=== PATIENT | female | born 1975 | race African-American/Black ===

== ENCOUNTER 2018-10-09 06:25 | Emergency (ER) | payer OTHER ==
[~2018-10-09] VITALS: Ht 175.3 cm; Wt 113.4 kg
[2018-10-09] MEDS ORDERED: dilTIAZem HCL 30 MG TABLET PO ONE (07:00)
[2018-10-09] MEDS ORDERED: LISINOPRIL 10 MG TABLET PO ONE ×2 (07:00)
[2018-10-09] MEDS ORDERED: diazePAM 5 MG TABLET PO ONE (07:00)
[2018-10-09] MEDS ORDERED: MORPHINE SULFATE 10 MG/ML VIAL. IM ONE (07:00)
[2018-10-09] MEDS ORDERED: HYDR-971 PO (07:04)
[2018-10-09] MEDS ORDERED: LISI10TA2 PO (07:04)
[2018-10-09] MEDS ORDERED: IBUP-1060 PO (07:04)
[2018-10-09] MEDS ORDERED: DIAZ5TAB PO (07:04)
[2018-10-09] MEDS ORDERED: DILT120C80 PO (07:04)
--- NOTE | 2018-10-09 07:36 | PHYS DOC ---
Past Medical History Past Medical History: Hypertension Past Surgical History: Alcohol Use: None Drug Use: Marijuana Adult General Chief Complaint Chief Complaint: BACK PAIN OR INJURY HPI HPI Patient is a 43 year old female who presents with low back pain and sciatica. Patient states has a chronic hx of LBP and infrequent sciatica symptoms. Today she reports worsening pain in the last 48 hours. This morning she awoke and her back was too stiff and she was having difficulty with ambulation. She did not have any recent trauma. No new exacerbating events that she is aware of. She complains of pain in the lumbar spine area that does have some radiation down the posterior aspect of the right leg. She does not have numbness, tingling, weakness. No difficulties with elimination. Symptoms do seem typical for her prior episodes of low back pain and sciatica according to the patient. No fever or chills. No flank pain. Review of Systems Review of Systems Constitutional: Denies fever or chills Eyes: Denies change in visual acuity HENT: Denies nasal congestion Respiratory: Denies cough or shortness of breath : Denies dysuria or hematuria Musculoskeletal: as above Integument: Denies rash Neurologic: Denies headache All other systems were reviewed and found to be within normal limits, except as documented in this note. Current Medications Current Medications Current Medications Medications (Trade) Dose Ordered Sig/Thang Start Time Stop Time Status Last Admin Dose Admin Diazepam (Valium) 5 mg 1X ONCE 10/09/18 07:00 10/09/18 07:01 DC 10/09/18 07:08 5 MG Diltiazem HCl (Cardizem) 30 mg 1X ONCE 10/09/18 07:00 10/09/18 07:01 DC 10/09/18 07:08 30 MG Lisinopril (Prinivil) 20 mg 1X ONCE 10/09/18 07:00 10/09/18 07:05 DC 10/09/18 07:08 20 MG Morphine Sulfate (Morphine Sulfate) 10 mg 1X ONCE 10/09/18 07:00 10/09/18 07:01 DC 10/09/18 07:06 10 MG Allergies Allergies Allergies Coded Allergies Type Severity Reaction Last Updated Verified No Known Drug Allergies 10/09/18 No Physical Exam Physical Exam Constitutional: Well developed, well nourished, no acute distress, non-toxic appearance, some antalgic movements HENT: Normocephalic, atraumatic, bilateral external ears normal, oropharynx moist Neck: Normal range of motion Cardiovascular:Heart rate regular rhythm, no murmur Lungs & Thorax: Bilateral breath sounds clear to auscultation Skin: Warm, dry, no erythema, no rash Back: TTP over lumbar paraspinal muscles Neurologic: Alert and oriented X 3, 5/5 motor strength bilateral LE's. Sensation to light touch intact over all dermatomes. 2/4 DTR's at achilles and patellar levels Psychologic: Affect normal Current Patient Data Vital Signs Vital Signs Date Time Temp Pulse Resp B/P (MAP) Pulse Ox O2 Delivery O2 Flow Rate FiO2 10/09/18 08:32 77 16 176/95 (122) 100 Room Air 10/09/18 06:35 98.5 98.5 Lab Values Laboratory Tests Test 10/09/18 07:24 Urine Collection Type Unknown Urine Color Red Urine Clarity Cloudy Urine pH 5.5 Urine Specific [place] >=1.030 Urine Protein 100 mg/dL (NEG-TRACE) Urine Glucose (UA) Negative mg/dL (NEG) Urine Ketones (Stick) Trace mg/dL (NEG) Urine Blood Large (NEG) Urine Nitrite Negative (NEG) Urine Bilirubin Moderate (NEG) Urine Urobilinogen Dipstick 1.0 mg/dL (0.2 mg/dL) Urine Leukocyte Esterase Small (NEG) Urine RBC >40 /HPF (0-2) Urine WBC 1-4 /HPF (0-4) Urine Squamous Epithelial Cells Mod /LPF Urine Bacteria Few /HPF (0-FEW) Urine Mucus Slight /LPF EKG EKG [] Radiology/Procedures Radiology/Procedures [] Course & Med Decision Making Course & Med Decision Making Pertinent Labs and Imaging studies reviewed. (See chart for details) Patient is evaluated in the emergency department for acute on chronic low back pain with sciatica. She was given medications for pain in the emergency department and did feel improved. Prescribed Valium, ibuprofen, [place] for pain at home. The patient was also noted to be hypertensive in the emergency department. She recently moved to this area from [place] and has not been able to establish care or get refills of her pressure medications. She normally takes extended release diltiazem 240 mg every day and lisinopril 10 mg daily. I did provide refills of these medications for the patient. She was discharged home. Encouraged to establish care. Return to the ER for any new or worsening symptoms. Some mild hematuria was noted. Patient states she feels she is starting her menses. Annabelleon Disclaimer Varun Disclaimer This electronic medical record was generated, in whole or in part, using a voice recognition dictation system. Departure Departure Impression: Primary Impression: Sciatica Additional Impression: Lumbar back pain Disposition: HOME, SELF-CARE Condition: GOOD Referrals: NON,STAFF (PCP) Patient Instructions: Sciatica, Back Pain, Adult, Back Exercises, [id number] , Pain Medicine Instructions, [id number] Scripts Lisinopril (LISINOPRIL) 10 Mg Tablet 1 TAB PO DAILY, #30 TAB 1 Refill Prov: ANNABELLE REGALADO DO 10/09/18 Diltiazem Hcl (DILTIAZEM 24HR CD) 120 Mg Cap.er.24h 240 MG PO DAILY, #60 CAP.SR 1 Refill Prov: ANNABELLE REGALADO DO 10/09/18 Diazepam (VALIUM) 5 Mg Tablet 5 MG PO TID for muscle spasm, #15 TAB Prov: ANNABELLE REGALADO DO 10/09/18 Hydrocodone/Apap 5-325 (NORCO 5-325 TABLET) 1 Each Tablet 1-2 EACH PO PRN Q6HRS PRN for SEVERE PAIN, #18 as needed for pain Prov: ANNABELLE REGALADO DO 10/09/18 Ibuprofen (IBUPROFEN) 800 Mg Tablet 800 MG PO PRN TID PRN for PAIN, #30 TAB take with food or milk to avoid upsetting stomach Prov: ANNABELLE REGALADO DO 10/09/18 Problem Qualifiers ANNABELLE REGALADO DO Oct 09, 2018 07:36
[2018-10-09 07:52] LABS: BILIRUBIN,URINE MODERATE (NEG); CLARITY,URINE CLOUDY; COLOR,URINE RED; NITRITE,URINE NEGATIVE (NEG); PH,URINE 5.5; PROTEIN,URINE 100 mg/dL (NEG-TRACE)
[2018-10-09 08:23] LABS: SQUAMOUS EPITHELIAL CELL,UR MOD /LPF
[2018-10-09 08:24] LABS: BACTERIA,URINE FEW /HPF (0-FEW); RBC,URINE >40 /HPF (0-2)
[2018-10-09 08:32] VITALS: BP 176/95
== END 2018-10-09 08:32 | disposition home or self-care (01) ==
LOC: ER 06:25
DX: M54.42 Lumbago with sciatica, left side (principal); G89.29 Other chronic pain; I10 Essential (primary) hypertension; Z98.890 Other specified postprocedural states
CPT/HCPCS: 81001; 96372; 99284; J2270

== ENCOUNTER 2019-01-21 11:12 | Emergency (ER) | payer OTHER ==
[~2019-01-21] VITALS: Ht 175.3 cm; Wt 119.3 kg
[~2019-01-21 11:12] MED LIST: DIAZ5TAB PO; DILT120C85 PO; HYDR-3164 PO; IBUP-1060 PO; LISI10TA2 PO
[2019-01-21 11:23] VITALS: BP 189/101
--- NOTE | 2019-01-21 11:38 | PHYS DOC ---
Past Medical History Past Medical History: Hypertension Past Surgical History: Alcohol Use: None Drug Use: Marijuana Adult General Chief Complaint Chief Complaint: BACK PAIN OR INJURY HPI HPI 43-year-old female presents to ER with complaints of lower back pain which is been gradually worsening over the past 1-2 days. Patient denies any recent falls or injury. Patient denies urinary or vaginal symptoms. Patient reports pain increases with repositioning and walking. She reports she took Tylenol yesterday denies any [id number] medications today. Patient denies swelling , numbness or tingling, or skin discoloration in bilateral lower extremities. Patient denies incontinence of bowel or bladder, change in bowel pattern, or saddle anesthesia. Patient reports history of sciatica but states typically her pain will radiate down bilateral lower extremities. Patient states she has had no pain in buttock or lower extremities. Review of Systems Review of Systems Constitutional: Denies fever or chills [] Respiratory: Denies cough or shortness of breath [] Cardiovascular: No additional information not addressed in HPI [] GI: Denies abdominal pain, nausea, vomiting, bloody stools or diarrhea [] : Denies urinary/vaginal sxs. Denies incontinence. Reports on BC so doesn't have menses Musculoskeletal: Denies joint pain. Reports lower back pain from side to side- denies pain radiates into buttock/lower extremities. Denies numbness/tingling Integument: Denies rash, swelling or skin lesions [] Neurologic: Denies headache, focal weakness or sensory changes All other systems were reviewed and found to be within normal limits, except as documented in this note. Current Medications Current Medications Current Medications Medications (Trade) Dose Ordered Sig/Thang Start Time Stop Time Status Last Admin Dose Admin Ibuprofen (Motrin) 600 mg 1X ONCE 01/21/19 11:45 01/21/19 11:46 DC 01/21/19 12:01 600 MG Methocarbamol (Robaxin) 750 mg 1X ONCE 01/21/19 11:45 01/21/19 11:46 DC 01/21/19 12:01 750 MG Allergies Allergies Allergies Coded Allergies Type Severity Reaction Last Updated Verified No Known Drug Allergies 10/09/18 No Physical Exam Physical Exam Constitutional: Well developed, well nourished, no acute distress, non-toxic appearance. [] HENT: Normocephalic, atraumatic, oropharynx moist, nose normal. [] Eyes: Pupils equal, conjunctiva normal, no discharge. [] Neck: Normal range of motion, no tenderness, supple Cardiovascular:Heart rate regular rhythm, no murmur [] Lungs & Thorax: Bilateral breath sounds clear to auscultation. Resp. equal/ nonlabored Abdomen: Bowel sounds normal, soft, no tenderness Skin: Warm, dry, no erythema, no rash. [] Back: Diffuse tenderness on palp. from side to side on lower back with no focal area worse. No swelling. Bilat. CVA tenderness Extremities: No tenderness, no cyanosis, no clubbing, ROM intact, no edema. 2+ bilat. dorsalis pedis/posterior tibial. Steady unassisted gait Neurologic: Alert and oriented X 3, normal motor function, normal sensory function, no focal deficits noted. [] Psychologic: Affect normal, judgement normal, mood normal. [] Current Patient Data Vital Signs Lab Values Laboratory Tests Test 01/21/19 11:20 01/21/19 12:06 Urine Collection Type Clean catch Urine Color Yellow Urine Clarity Cloudy Urine pH 6.5 Urine Specific [place] 1.015 Urine Protein Negative mg/dL (NEG-TRACE) Urine Glucose (UA) Negative mg/dL (NEG) Urine Ketones (Stick) Negative mg/dL (NEG) Urine Blood Negative (NEG) Urine Nitrite Negative (NEG) Urine Bilirubin Negative (NEG) Urine Urobilinogen Dipstick 1.0 mg/dL (0.2 mg/dL) Urine Leukocyte Esterase Moderate (NEG) Urine RBC Occ /HPF (0-2) Urine WBC 1-4 /HPF (0-4) Urine Squamous Epithelial Cells Mod /LPF Urine Bacteria Many /HPF (0-FEW) Urine Mucus Mod /LPF POC Urine HCG, Qualitative Hcg negative (Negative) Microbiology 01/21/19 Urine Culture - Final, Complete 01/21/19 Urine Culture Result 1 (LEILA) - Final, Complete 01/21/19 Antimicrobic Susceptibility - Final, Complete EKG EKG [] Radiology/Procedures Radiology/Procedures [] Course & Med Decision Making Course & Med Decision Making Pertinent Labs reviewed. (See chart for details) Pt was evaluated in the ER for c/o lower back pain denying injury and reported hx of sciatica. She was provided with dose of ibuprofen and Robaxin with reports at time of re-eval. her pain had improved. UA was obtained while in the ER showing probable contaminated specimen with moderate bacteria/squamous cells - neg. UCG. She had denied any urinary sxs. Pt remained PMS in bilat. extremities and had denied any incontinence or saddle anesth. With improved sxs pt is requesting discharge home without further monitoring. Discussed home d/c instructions and OTC options for pain relief along with heat/ice compress to affected area. Pt to f/u with her PCP if sxs persist or with concerns. Education provided on s&s to return to ER for. At time of discharge discussion pt had steady unassisted gait in room and was in no visible distress. Dragon Disclaimer Dragon Disclaimer This electronic medical record was generated, in whole or in part, using a voice recognition dictation system. Departure Departure Impression: Primary Impression: Back pain Disposition: 01 HOME, SELF-CARE Condition: STABLE Referrals: NON,STAFF (PCP) Patient Instructions: Back Pain, Adult Additional Instructions: Tylenol and/or Ibuprofen for pain as directed on container. You can try over the counter sports cream as directed to affected area. Ice and heat compress to affected area every 3-4 hours for 20-30 minutes at a time. If symptoms persist follow-up with your primary doctor for re-evaluation and further care. Scripts Methocarbamol (ROBAXIN-750) 750 Mg Tablet 1 TAB PO BID PRN for PAIN, #10 TAB 0 Refills No driving or drinking alcohol while taking this medication Prov: POOJA MARQUEZ APRN 01/21/19 POOJA MARQUEZ APRN Jan 21, 2019 11:38
[2019-01-21] MEDS ORDERED: METHOCARBAMOL 750 MG TABLET PO ONE (11:45)
[2019-01-21] MEDS ORDERED: IBUPROFEN 600 MG TABLET. PO ONE (11:45)
[2019-01-21 12:14] LABS: BILIRUBIN,URINE NEGATIVE (NEG); CLARITY,URINE CLOUDY; COLOR,URINE YELLOW; NITRITE,URINE NEGATIVE (NEG); PH,URINE 6.5; PROTEIN,URINE NEGATIVE (NEG-TRACE)
[2019-01-21 12:28] LABS: BACTERIA,URINE MANY /HPF (0-FEW); RBC,URINE OCC /HPF (0-2)
[2019-01-21 12:29] LABS: SQUAMOUS EPITHELIAL CELL,UR MOD /LPF
[2019-01-21] MEDS ORDERED: METH-38 PO (12:39)
== END 2019-01-21 13:05 | disposition home or self-care (01) ==
LOC: ER 11:12
DX: M54.5 Low back pain (principal); I10 Essential (primary) hypertension; Z98.890 Other specified postprocedural states
CPT/HCPCS: 81001; 81025; 87086; 87186; 99283